=== PATIENT | male | born 1955 | race Caucasian/White ===

== ENCOUNTER 2016-10-27 21:07 | Emergency (ER) | payer BC ==
[2016-10-27] MEDS ORDERED: TORAdol 30 mg Injection IM ONE (21:46)
[2016-10-27] MEDS ORDERED: TORAdol 30 mg Injection ONE ×2 (21:49→21:54)
--- NOTE | 2016-10-27 22:10 | ERPHSYRPT ---
- History of Present Illness Time Seen by Provider: 10/27/16 22:06 Source: patient Exam Limitations: no limitations Patient Subjective Stated Complaint: pt states a log fell on his foot today. states the log was approx 500 lbs. Triage Nursing Assessment: pt alert and oriented. answers questions approp. pt ambulatory with limping gait noted. respirations nonlabored with lungs cta. mild swelling noted to top of lt foot and lt outer aspect of lt ankle. cap refill, pedal pulse, and sensation wnl. Physician History: 61 y/o male comes to the ER after a log rolled over his left foot. Pt describes the pain as sharp, constant, 9/10, worse with ambulation and pt has not taken any pain meds. Method of Injury: direct blow Occurred: just prior to arrival Quality: constant Severity of Pain-Max: severe Severity of Pain-Current: severe Modifying Factors: Improves With: nothing Associated Symptoms: none Allergies/Adverse Reactions: No Known Drug Allergies Allergy (Verified 10/27/16 21:23) Home Medications: No Home Meds [address] [facility] 10/27/16 [History] Hx Tetanus, Diphtheria Vaccination/Date Given: Yes Hx Influenza Vaccination/Date Given: No Hx Pneumococcal Vaccination/Date Given: No Immunizations Up to Date: Yes - Review of Systems Constitutional: No Fever, No Chills Eyes: No Symptoms Ears, Nose, & Throat: No Symptoms Respiratory: No Cough, No Dyspnea Cardiac: No Chest Pain, No Edema, No Syncope Abdominal/Gastrointestinal: No Abdominal Pain, No Nausea, No Vomiting, No Diarrhea Genitourinary Symptoms: No Dysuria Musculoskeletal: Myalgias, No Back Pain, No Neck Pain Skin: No Rash Neurological: No Dizziness, No Focal Weakness, No Sensory Changes Psychological: No Symptoms Endocrine: No Symptoms All Other Systems: Reviewed and Negative - Past Medical History Pertinent Past Medical History: No Neurological History: No Pertinent History ENT History: No Pertinent History Cardiac History: No Pertinent History Respiratory History: Other Endocrine Medical History: No Pertinent History Musculoskeletal History: Fractures GI Medical History: No Pertinent History History: No Pertinent History Psycho-Social History: No Pertinent History Male Reproductive Disorders: No Pertinent History - Past Surgical History Past Surgical History: Yes Neuro Surgical History: No Pertinent History Cardiac: No Pertinent History Respiratory: Other Gastrointestinal: No Pertinent History, Appendectomy Genitourinary: No Pertinent History Musculoskeletal: Orthopedic Surgery Male Surgical History: No Pertinent History Other Surgical History: spleenectomy,left leg fx with hdwe placed,neck surgery with screw placed,left side ribs fx and lung inflated - Social History Smoking Status: Current every day smoker How long have you smoked: 40 Exposure to second hand smoke: No Drug Use: none Patient Lives Alone: Yes - Nursing Vital Signs Nursing Vital Signs: Initial Vital Signs Temperature 98.4 F 10/27/16 21:14 Pulse Rate 80 10/27/16 21:14 Respiratory Rate 18 10/27/16 21:14 Blood Pressure 148/82 10/27/16 21:14 O2 Sat by Pulse Oximetry 99 10/27/16 21:14 Pain Scale Pain Intensity 9 - Physical Exam General Appearance: mild distress, alert Eyes, Ears, Nose, Throat Exam: moist mucous membranes Neck Exam: non-tender, supple Cardiovascular/Respiratory Exam: chest non-tender, normal breath sounds, regular rate/rhythm, no respiratory distress Gastrointestinal/Abdominal Exam: non-tender, guarding Back Exam: normal inspection, No vertebral tenderness Foot Exam: left foot: limited range of motion, pain, soft tissue tenderness Neuro/Tendon Exam: normal sensation, normal motor functions Mental Status Exam: alert, oriented x 3, cooperative Skin Exam: normal color, warm, dry SpO2: 99 Oxygen Delivery: Room Air Ordered Tests: Active Orders 24 hr Category Date Time Status [facility] 10/27/16 22:06 Active Crutches STAT Care 10/27/16 22:06 Active FOOT (MINIMUM 3 VIEWS) Stat Exams 10/27/16 21:46 Taken Medication Summary Discontinued Medications Generic Name Dose Route Start Last Admin Trade Name [place] PRN Reason Stop Dose Admin Ketorolac Tromethamine 60 mg 10/27/16 21:46 10/27/16 21:50 Toradol 30 Mg Injection IM 10/27/16 21:47 60 mg STAT ONE Administration Ketorolac Tromethamine Confirm 10/27/16 21:49 Toradol 30 Mg Injection Administered 10/27/16 21:50 Dose 60 mg .ROUTE .STK-MED ONE Ketorolac Tromethamine Confirm 10/27/16 21:54 Toradol 30 Mg Injection Administered 10/27/16 21:55 Dose 60 mg .ROUTE .STK-MED ONE - Progress Progress: improved Progress Note: 10/27/16 22:08 The patient feels better after receiving toradol. The foot x ray does not show any acute fracture. Pt will be d/c home on toradol for pain as well as crutches and jarrod wrap. - Departure Time of Disposition: 22:09 Departure Disposition: Home Clinical Impression: Foot injury Qualifiers: Encounter type: initial encounter Laterality: left Qualified Code(s): S99.922A - Unspecified injury of left foot, initial encounter Condition: Stable Critical Care Time: No Referrals: CHA RICHARDSON MD [Primary Care Provider] - Instructions: Foot Pain Additional Instructions: Follow up with your primary care doctor if there is no improvement. Prescriptions: Hydrocodone/Acetaminophen [[place] 5-325 Tablet] 1 each PO QID PRN #6 tablet PRN Reason: Severe Pain Ketorolac Tromethamine [Toradol] 10 mg PO QID PRN #20 tablet PRN Reason: Pain
[2016-10-27] MEDS ORDERED: NORCO 5/325 MG PO ONE (22:12)
[2016-10-27] MEDS ORDERED: NORCO 5/325 MG ONE (22:29)
[2016-10-27 22:37] VITALS: BP 136/75; PULSE 70; O2SAT 98
--- NOTE | 2016-10-28 08:47 | XRAY ---
Indication: Pain following injury. Comparison: None 3 nonweightbearing views of the left foot demonstrates tiny plantar heel spur and partially visualized old distal tibial fracture with orthopedic hardware. Well circumscribed distal tibial sclerotic lesions either bone islands versus healed fibrous cortical defect. No other bony, articular, or soft tissue abnormalities.
== END 2016-10-27 22:37 | disposition home or self-care (01) ==
LOC: ED 21:07
DX: S99.922A Unspecified injury of left foot, initial encounter (principal); W22.8XXA Striking against or struck by other objects, initial encounter
CPT/HCPCS: 73630; 96372; 99283; 99284; J1885; A9270-GY